=== PATIENT | male | born 1950 | race Caucasian/White ===

== ENCOUNTER 2025-09-05 19:14 | Emergency (ER) | payer SELFPAY ==
[2025-09-05 19:16] VITALS: BP 175/112
[2025-09-05 20:07] VITALS: BMI 26.7
--- NOTE | 2025-09-05 20:08 | ED.GENMED ---
History of Present Illness
General
Chief Complaint: Male Genito-Urinary Symptoms
Time Seen by Provider: 09/05/25 20:08
History of Present Illness
History of Present Illness:
FOCUSED PAST MEDICAL HISTORY
- BPH, has had kidney stones and UTI
REVIEW OF OLD RECORDS
- [facility] goes to [facility]
Note:
CHIEF COMPLAINT(S)
Inability to urinate and severe suprapubic pain.
HISTORY OF PRESENT ILLNESS
The patient is a 74-year-old male with a history of ongoing urinary issues and slight prostate cancer. He has been managing his care primarily through the [facility] system. Recently, he had a suprapubic catheter in place for one
week, following a previous placement that lasted two weeks. The patient has experienced significant suprapubic pain along with urinary retention issues.
The patient mentioned that he briefly consulted with healthcare providers earlier today during a scheduled urology appointment. After having his catheter removed, he experienced difficulty in voiding, characterized by minimal dribbling and severe
pain. He also cited straining with minimal urinary output and noted a previous diagnosis of a urinary tract infection for which he received Macrobid as treatment.
Despite recent interventions for his urinary problem, the patient reports continuing difficulties. He mentioned undergoing a transurethral resection of the prostate (TURP) years ago, a procedure where a resection of his prostate was completed, but
no signs of significant prostate cancer warranting current treatment were noted. The patient recalls no fever associated with his symptoms.
PAST MEDICAL AND SURGICAL HISTORY
The patient underwent a TURP procedure several years ago to address urinary issues, and he reports having undergone a prostate biopsy three months ago.
CHRONIC MEDICAL CONDITIONS SIGNIFICANTLY AFFECTING CARE
The patient has slight prostate cancer and a history of urinary retention requiring catheterization.
MEDICATIONS
Currently taking Macrobid for a urinary tract infection.
PHYSICAL EXAM
General: Alert, appears fairly comfortable
Skin: Warm, dry.
Head: Normocephalic, atraumatic.
Neck: Supple, trachea midline.
Eye Ears, nose, mouth and throat: Oral mucosa moist.
Cardiovascular: Normal peripheral perfusion, No edema.
Respiratory: Respirations are non-labored.
Gastrointestinal: Abdomen nondistended, mild suprapubic tenderness noted.
Back: Normal range of motion, Normal alignment.
Musculoskeletal: Normal ROM, normal strength.
Neurological: Alert and oriented to person, place, time, and situation, No focal neurological deficit observed.
Psychiatric: Cooperative, appropriate mood & affect.
PROBLEM LIST
Acute:
- Urinary retention
- Severe suprapubic pain
- Reported urinary tract infection
Chronic:
- Slight prostate cancer
PLAN
- Reinsertion of a 16 Azerbaijani suprapubic catheter to relieve urinary retention.
- Recommend follow-up with a local urologist for further management.
- Continue antibiotic treatment with Macrobid
- Monitor for any signs of fever or increased pain which could suggest complications.
DIFFERENTIAL DIAGNOSIS
The Differential Diagnosis includes, in no particular order and is not limited to:
- Benign prostatic hyperplasia
- Prostate cancer
- Bladder outlet obstruction
- Neurogenic bladder
- Urinary tract infection
- Interstitial cystitis
- Acute prostatitis
- Bladder stones
- Urethral stricture
- Chronic pelvic pain syndrome
Disposition:
SUMMARY OF ENCOUNTER
The patient, a 74-year-old male with a history of urinary retention and slight prostate cancer, presented to the emergency department due to an inability to urinate and severe suprapubic pain. After a recent removal of a suprapubic catheter and
ongoing difficulties with voiding, he experienced minimal urinary output and significant discomfort. The patient was advised to continue his antibiotic treatment with Macrobid for the presumed urinary tract infection. The plan included providing
contact information for a local urologist for follow-up and further management.
PLAN
Reinsertion of a 16 Azerbaijani suprapubic catheter to relieve urinary retention. Continuation of current antibiotic therapy with trimethoprim-sulfamethoxazole. Recommend follow-up with a local urologist for further management and the [facility]
healthcare system for ongoing urinary issues. The patient was advised to monitor for any signs of fever or increased pain that could suggest complications.
FOLLOW-UP INSTRUCTIONS
The patient is advised to contact a local urologist for follow-up and also reach out to the [facility] system to discuss further management of his condition. It was suggested that he convey the frustrations and reiterate the need
for additional support and a management plan, given his recent visit to the emergency department.
MEDICATION RECONCILIATION
The patient is currently taking trimethoprim-sulfamethoxazole for a urinary tract infection. Advised to continue the antibiotic treatment as directed.
MEDICAL DECISION MAKING
-Number and Complexity of Problems Addressed: Chronic conditions affecting care include slight prostate cancer and previous urinary retention requiring catheterization. Addressed acute urinary retention and severe suprapubic pain for current visit.
Differential diagnosis considered includes benign prostatic hyperplasia, bladder outlet obstruction, neurogenic bladder, urinary tract infection, amongst others.
-Data:
Category 1: Non-emergency department records reviewed. The patients outpatient medical history and current use of Macrobid were considered during evaluation.
-Risk: Consideration of Admission/Observation: Escalation of care including admission/observation was considered given the complexity and risk of the patients presenting complaint, exam findings, and/or their underlying comorbidities. However,
ultimately I feel the patient is safe for outpatient management with close follow-up. Reasoning: Work-up reassuring, does not reveal any acute life/organ threatening processes, patients symptoms well controlled upon reevaluation, reexamination is
reassuring, vitals are stable, patient agreeable with discharge, reliable for follow-up.
DIAGNOSIS
Acute urinary retention (R33.8)
Feels markedly improved after 16 Azerbaij[place] Yu catheter was placed after bladder scan showed 415 mL of urine. The Yu drained slightly cloudy urine and he was already started on Macrobid this morning.
Phy Exam
Physical Exam
Physical Exam:
See HPI
Course
Orders/Labs/Results
Orders:
Orders
09/05/25 20:19
Yu Placement- Treatment ONCE
Reason for insertion: Acute Retention
Vital Signs
Initial and Last Documented VS:
Initial Vital Signs
Temp Pulse Resp BP Pulse Ox
36.4 C 86 16 175/112 98
09/05/25 19:16 09/05/25 19:16 09/05/25 19:16 09/05/25 19:16 09/05/25 19:16
Last Documented Vital Signs
Temp Pulse Resp BP Pulse Ox
36.4 C 86 16 175/112 98
09/05/25 19:16 09/05/25 19:16 09/05/25 19:16 09/05/25 19:16 09/05/25 20:09
*Pulse Oximetry
SaO2: 98
Oxygen Mode of Delivery: Room air
Patient hypoxic: no
*Critical Care Note
Total Time (30-74mins, 75-104mins- exclusive of procedures): Not Applicable
ED Attending Note
-
Portions of this chart may have been created with voice recognition software.� Occasional wrong word or��sound alike� substitutions may have occurred due to the inherent limitations of voice recognition software.
Discharge Plan
Departure
Patient Disposition: Home (Routine Discharge)
Date of Disposition: 09/05/25
Time of Disposition: 20:44
Patient with high blood pressure during this ER visit?: Yes
Discharge Problem:
Acute on chronic urinary retention
Instructions: How to Care for Your Yu Catheter, Male, Urinary Retention (DC), BLOOD PRESSURE
Referrals:
Mago Cook MD [Active, Urology]
UNKNOWN,NO INTERVIEW [Family Provider]
Activity Restrictions/Additional Instructions:
I have given you the contact information for a [place] urologist, Dr. Cook. I also recommend that you call your doctors at the [facility]. You had 415 mL on the bladder scan and drained 500 mL after the 16 Azerbaijani Yu catheter was placed. Continue
the antibiotics that they already prescribed.
Interventions
Interventions:
*Risk Screen - Suicide Last Done: 09/05/25 19:16
*Neglect/Abuse Screening Last Done: 09/05/25 19:16
ED-Male Genitourinary Assessment Last Done: 09/05/25 20:08
Discharge Date and Time
Print Language: THAI
== END 2025-09-05 20:53 | disposition home or self-care (01) ==
LOC: EMR 19:14
PROVIDERS: EMERGENCY PHYSICIAN Emergency Medicine
DX: N40.1 Benign prostatic hyperplasia with lower urinary tract symptoms (principal); R33.8 Other retention of urine; R03.0 Elevated blood-pressure reading, without diagnosis of hypertension; C61 Malignant neoplasm of prostate; Z90.79 Acquired absence of other genital organ(s)
CPT/HCPCS: 99282; 51702